=== PATIENT | female | born 1965 | race Caucasian/White ===

== ENCOUNTER 2020-09-12 09:46 | Observation (INO) | payer OTHER ==
[~2020-09-12] VITALS: Ht 162.6 cm; Wt 54.4 kg
--- NOTE | 2020-09-12 09:46 | NUR ---
Patient BIBA BLS, transferred to bed 12. RN evaluating patient at bedside.
[2020-09-12 09:54] VITALS: BP 95/54
--- NOTE | 2020-09-12 10:00 | NUR ---
Dr. Carpenter is evaluating the patient at bedside.
--- NOTE | 2020-09-12 10:00 | NUR ---
55 Y/O FEMALE BIBA, PRESENTS TO ED C/O RIGHT FLANK PAIN AND RIGHT SIDE WEAKNESS. PT STATES 10/10 CONSTANT/ SHARP PAIN THAT STARTED AT 0800. PT ALSO STATES SHE WAS A [place] WHEN SUDDENLY SHE BEGAN TO FEEL RIGHT FLANK PAIN FOLLEW BY JAW, RIGHT ARM AND LEG NUMBNESS AND WEAKNESS. ON ARRIVAL, AOX4, PUPILS PEERLA 3MM, NO SPEACH DEFFICITS, SMILE SYMETRICAL, RIGHT ARM DOOR TENDER IS WEAK. STATES SHE IS UNABLE TO LIFT RIGHT LEG DUE TO PAIN AND WEAKNESS. NEED ASSISTANCE WHEN AMBULATING, DUE TO PAIN AND WEAKNESS OF RIGHT SIDE. DENNIES VISSION CHANGES. MD. SALEH AWARE OF PT STATUS. PMH: DM, HIGH CHOLESTEROL, THYROID DISEASE NKDA
--- NOTE | 2020-09-12 10:03 | NUR ---
Called code brain.
[2020-09-12] MEDS ORDERED: fentaNYL citrate 0.05 MG/ML VIAL IVP ONE (10:10)
--- NOTE | 2020-09-12 10:12 | NUR ---
Patient taken to CT scan via gurney by [place], accompanied by nurse.
--- NOTE | 2020-09-12 10:35 | NUR ---
Patient returned from CT scan. RN reevaluating the patient at bedside.
--- NOTE | 2020-09-12 10:36 | NUR ---
TeleNeuro consultation ordered as requested by Dr. Carpenter.
[2020-09-12 10:53] LABS: BASOPHILS % (AUTO) 0.5 % (0.0-2.0); EOSINOPHILS # (AUTO) 0.1 K/uL (0-0.4); EOSINOPHILS % (AUTO) 1.1 % (0.0-4.0); HEMATOCRIT 36.5 % (36-48); HEMOGLOBIN 12.5 g/dL (12.0-16.0); LYMPHOCYTES # (AUTO) 1.4 K/uL (2.5-16.5); LYMPHOCYTES % (AUTO) 21.9 % (20.5-51.1); MEAN CORPUSCULAR HEMOGLOBIN 32 pg (27-31); MEAN CORPUSCULAR HGB CONC 34 g/dL (33-37); MEAN CORPUSCULAR VOLUME 93.1 fL (80-94); MONOCYTES # (AUTO) 0.6 K/uL (0.8-1.0); MONOCYTES % (AUTO) 9.1 % (1.7-9.3); NEUTROPHILS # (AUTO) 4.2 K/uL (1.8-7.7); NEUTROPHILS % (AUTO) 67.4 % (42.2-75.2); PLATELET COUNT (AUTO) 223 K/uL (140-450); RED BLOOD CELL COUNT(AUTO) 3.92 MIL/uL (4.20-5.40); RED CELL DISTRIBUTION WIDTH 13.1 % (11.6-13.7); WHITE BLOOD COUNT (AUTO) 6.3 K/uL (4.8-10.8)
[2020-09-12 11:01] LABS: APPEARANCE,URINE CLEAR (CLEAR); BILIRUBIN,URINE NEGATIVE (NEGATIVE); BLOOD, URINE NEGATIVE (NEGATIVE); COLOR,URINE YELLOW (YELLOW); NITRITE, URINE NEGATIVE (NEGATIVE); PH,URINE 6.5 (5.0-9.0); UGLUCOSE NEGATIVE (NEGATIVE)
[2020-09-12 11:04] LABS: RBC,URINE 0-5 /HPF (0-5)
[2020-09-12 11:05] LABS: ANION GAP 9.8 (8-16); CARBON DIOXIDE 28.8 mmol/L (21-32); CREATININE 0.8 mg/dL (0.6-1.3); POTASSIUM 3.6 mmol/L (3.5-5.1)
[2020-09-12 11:05] LABS: LEUKOCYTE ESTERASE ,URINE 1+ (NEGATIVE); WBC,URINE 0-5 /HPF (0-5)
[2020-09-12 11:09] LABS: ALBUMIN 3.4 g/dL (3.4-5.0); BILIRUBIN,DIRECT 0.1 mg/dL (0.0-0.3); TOTAL BILIRUBIN 0.3 mg/dL (0.0-1.0)
--- NOTE | 2020-09-12 11:37 | NUR ---
DR. SALEH EVALUATING PT AT BEDSIDE
[2020-09-12] MEDS ORDERED: METF500S6 PO (12:17)
[2020-09-12] MEDS ORDERED: ATOR20TA PO (12:17)
[2020-09-12] MEDS ORDERED: SYN.05 PO (12:17)
--- NOTE | 2020-09-12 13:01 | NUR ---
SON CALLED FOR PT UPDATE- [facility] [phone]
[2020-09-12] MEDS ORDERED: DEXTROSE 50% 50 ML SYR IVP PRN (13:30)
[2020-09-12] MEDS ORDERED: INSULIN LISPRO SLIDING SCALE 100 UNITS/ML VIAL SUBQ PRN (13:30)
[2020-09-12] MEDS ORDERED: MORPHINE SULFATE 4 MG/ML SYR IVP PRN (13:30)
[2020-09-12] MEDS ORDERED: HYDROcodone/APAP 5/325 MG 1 TAB TAB PO PRN (13:30)
[2020-09-12] MEDS ORDERED: ONDANSETRON 4 MG/2 ML VIAL IVP PRN (13:30)
--- NOTE | 2020-09-12 13:39 | NUR ---
COVID/ ZAIN SWAB DONE AND WALKED TO LAB
[2020-09-12] MEDS: NACL 0.9% 1,000 ML IV SCH (13:46)
[2020-09-12] MEDS: ACETAMINOPHEN 325 MG TAB PO PRN (13:55)
--- NOTE | 2020-09-12 14:00 | NUR ---
Pt walked to use rest room, steady gait
--- NOTE | 2020-09-12 14:07 | NUR ---
pt returned from restroom, conected back to bedside monitor and 0.9% NS runing at 75 ml/hr, bed locked and in lowest position, HOB elevated, x 1 siderails up. No signs of distress, VSS.
[2020-09-12] MEDS: BLOOD GLUCOSE MONITORING 1 DEV DEV FS SCH ×2 (16:33→21:00)
--- NOTE | 2020-09-12 16:36 | NUR ---
blood glucose 88, juice and crackers provided to pt.
--- NOTE | 2020-09-12 16:43 | NUR ---
Dr. Ulrich is evaluating the patient at bedside.
--- NOTE | 2020-09-12 17:15 | NUR ---
PT RESTING, EQUAL RISE AND FALL OF CHEST, NO SIGNS OF DISTRESS, VSS, HOB ELEVATED, RAILS UP X2, REPOSITIONED PT FOR COMFORT, BED LOCKED AND IN LOWEST POSITION.
--- NOTE | 2020-09-12 18:47 | NUR ---
DINNER TRAY PLACED AT BEDSIDE
--- NOTE | 2020-09-12 19:03 | NUR ---
PT SITTING UP IN CHAIR EATING, EQUAL RISE AND FALL OF CHEST, NO SIGNS OF DISTRESS, VSS.
--- NOTE | 2020-09-12 19:15 | NUR ---
REPORT RECEIVED FROM DELMA DOOLEY. TRANSFER OF CARE AT THIS TIME.
--- NOTE | 2020-09-12 19:15 | NUR ---
Pt report given to Rylee, Transfer of care at this time.
--- NOTE | 2020-09-12 19:30 | NUR ---
PT IS IN STABLE CONDITION. 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 RT SIDED DEFICITS SUBSIDED. SYMMETRICAL SMILE. PT DENIES RT SIDED NUMBNESS. PT REPORTED FLANK PAIN TO RT, PT DENIES NEED FOR PAIN INTERNVENTIONS, STATED SHE CAN TOLERATE. PT REPOSITIONED, GIVEN A WARM BLANKET, AND WATER. PT NEEDS MET THIS TIME. CALL LIGHT IN REACH, BED LOCKED IN LOWEST POSITION, SIDE RAILS X2.
--- NOTE | 2020-09-12 21:40 | NUR ---
pt ambulated to with steady gait. provided with tooth brush and mouth wash per request.
--- NOTE | 2020-09-12 23:07 | NUR ---
pt made comfortable. stated she was ready to sleep. bed locked in lowest position, side rails x2. needs met at this time.
--- NOTE | 2020-09-13 01:31 | NUR ---
PT IS RESTING, EQUAL RISE AND FALL OF CHEST WALL, UNLABORED BREATHING. BED LOCKED IN LOWEST POSITION, SIDE RAILS X2. ON CARDIAC AND PULSE OX.
--- NOTE | 2020-09-13 03:06 | NUR ---
PT IS RESTING. EQUAL RISE AND FALL OF CHEST WALL, UNLABORED BREATHING.CALL WITHIN REACH, BED LOCKED IN LOWEST POSITION, SIDE RAILS X2.
[2020-09-13] MEDS: NACL 0.9% 1,000 ML IV SCH (04:10)
--- NOTE | 2020-09-13 05:10 | NUR ---
PT RESTING. EQUAL RISE AND FALL OF CHEST WALL, UNLABORED BREATHING. PT ON ASSEMBLER LAY UPS AND PULSE OX. NEEDS MET THIS TIME. BED LOCKED IN LOWEST POSITION, SIDE RAILS X2.
--- NOTE | 2020-09-13 06:25 | NUR ---
PT AWAKE FOR MED PASS. PT NEEDS MET AT THIS TIME. BED LOCKED IN LOWEST POSITION, SIDE RAILS X2. ON BIOLOGY PROFESSOR AND PULSE OX. FLUIDS CONT.
[2020-09-13] MEDS ORDERED: LEVOTHYROXINE 0.05 MG TAB PO SCH (06:30)
--- NOTE | 2020-09-13 07:12 | NUR ---
REPORT GIVEN TO DELMA GRANT. TRANSFER OF CARE AT THIS TIME.
--- NOTE | 2020-09-13 07:15 | NUR ---
REPORT RECEIVED FROM DELMA COOK. TX OF CARE AT THIS TIME.
[2020-09-13 07:39] LABS: BASOPHILS % (AUTO) 0.7 % (0.0-2.0); EOSINOPHILS # (AUTO) 0.1 K/uL (0-0.4); EOSINOPHILS % (AUTO) 2.2 % (0.0-4.0); HEMATOCRIT 38.8 % (36-48); HEMOGLOBIN 13.1 g/dL (12.0-16.0); LYMPHOCYTES # (AUTO) 1.9 K/uL (2.5-16.5); LYMPHOCYTES % (AUTO) 34.7 % (20.5-51.1); MEAN CORPUSCULAR HEMOGLOBIN 32 pg (27-31); MEAN CORPUSCULAR HGB CONC 34 g/dL (33-37); MEAN CORPUSCULAR VOLUME 94.3 fL (80-94); MONOCYTES # (AUTO) 0.5 K/uL (0.8-1.0); MONOCYTES % (AUTO) 8.9 % (1.7-9.3); NEUTROPHILS % (AUTO) 53.5 % (42.2-75.2); PLATELET COUNT (AUTO) 237 K/uL (140-450); RED BLOOD CELL COUNT(AUTO) 4.12 MIL/uL (4.20-5.40); RED CELL DISTRIBUTION WIDTH 12.9 % (11.6-13.7); WHITE BLOOD COUNT (AUTO) 5.6 K/uL (4.8-10.8)
[2020-09-13 07:51] LABS: ALBUMIN 3.3 g/dL (3.4-5.0); ANION GAP 7.5 (8-16); CARBON DIOXIDE 30.8 mmol/L (21-32); CREATININE 0.9 mg/dL (0.6-1.3); MAGNESIUM 1.7 mg/dL (1.8-2.4); POTASSIUM 4.3 mmol/L (3.5-5.1); TOTAL BILIRUBIN 0.5 mg/dL (0.0-1.0)
[2020-09-13] MEDS: BLOOD GLUCOSE MONITORING 1 DEV DEV FS SCH ×2 (07:55→11:42)
--- NOTE | 2020-09-13 08:30 | NUR ---
BREAKFAST PROVIDED TO PT TO BEDSIDE.
[2020-09-13] MEDS ORDERED: ENOXAPARIN 40 MG/0.4 ML SYR SUBQ SCH (09:00)
[2020-09-13] MEDS ORDERED: ATORVASTATIN 20 MG TAB PO SCH (09:00)
[2020-09-13] MEDS ORDERED: ASPIRIN 81 MG TAB.CHEW PO SCH (09:00)
[2020-09-13] MEDS: ACETAMINOPHEN 325 MG TAB PO PRN (09:27)
--- NOTE | 2020-09-13 11:46 | NUR ---
Dr. Ulrich is evaluating pt at bedside.
[2020-09-13] MEDS ORDERED: IBUP-1842 PO (12:00)
[2020-09-13] MEDS ORDERED: CYCL10TA13 PO (12:00)
[2020-09-13] MEDS ORDERED: SENN-73 PO (12:00)
[2020-09-13 12:18] VITALS: BP 110/71
[2020-09-13 12:19] VITALS: BP 110/71
--- NOTE | 2020-09-13 12:19 | NUR ---
Patient discharged with v/s stable. Written and verbal after care instructions given and explained. Patient alert, oriented and verbalized understanding of instructions. Ambulatory with steady gait. All questions addressed prior to discharge. ID band removed. Patient advised to follow up with PMD. Rx of Flexeril, Senokot, and Ibuprofen given by Dr. Ulrich. Patient educated on indication of medication including possible reaction and side effects. Opportunity to ask questions provided and answered.
--- NOTE | 2020-09-23 06:13 | NUR ---
LATE ENTRY---- 0.9% SODIUM CHLORIDE DISCONTINUED AT 1215
== END 2020-09-13 12:19 | disposition home or self-care (01) ==
LOC: MED 09:46 → MTU 13:29
PROVIDERS: ADMIT Internal Medicine; ATTEND Internal Medicine
DX: R10.9 Unspecified abdominal pain (principal); K59.00 Constipation, unspecified; E11.9 Type 2 diabetes mellitus without complications; E78.5 Hyperlipidemia, unspecified; E03.9 Hypothyroidism, unspecified; Z79.84 Long term (current) use of oral hypoglycemic drugs
CPT/HCPCS: 36415; 70450; 71045; 71275; 74174; 80048; 80053; 80076; 81001; 82948; 83690; 83735; 84484; 85025; 87086; 87426; 93005; 96361; 96372; 96374; 99291; G0378; J1650; J3010; Q9967